=== PATIENT | female | born 1965 | race Two or more races ===

== ENCOUNTER → 2017-09-24 | Outpatient (CLI) | payer OTHER ==
[~2017-09-24] VITALS: Ht 152.4 cm; Wt 73.9 kg
== END | disposition home or self-care (01) ==
LOC: PPHC 07:33
DX: J06.9 Acute upper respiratory infection, unspecified (principal)

== ENCOUNTER → 2017-09-25 | Outpatient (CLI) | payer OTHER ==
[~2017-09-25] VITALS: Ht 152.4 cm; Wt 73.9 kg
== END | disposition home or self-care (01) ==
LOC: PPHC 15:27
DX: J09.X2 Influenza due to identified novel influenza A virus with other respiratory manifestations (principal); J11.1 Influenza due to unidentified influenza virus with other respiratory manifestations

== ENCOUNTER 2025-08-10 07:57 | Inpatient (IN) | payer BC ==
[~2025-08-10] VITALS: Ht 170.2 cm; Wt 77.1 kg
[2025-08-10] MEDS ORDERED: BENZONATATE 200 MG CAPSULE PO ONE (09:15)
[2025-08-10] MEDS ORDERED: GUAIFENESIN 200 MG/10 ML BLIST.PACK PO ONE ×2 (09:15→10:05)
[2025-08-10] MEDS ORDERED: 0.9 % SODIUM CHLORIDE 1,000 ML IV ONE (09:15)
[2025-08-10] MEDS ORDERED: 0.9 % SODIUM CHLORIDE 500 ML IV ONE (09:15)
[2025-08-10] MEDS ORDERED: ALBUTEROL SULFATE 3 ML/2.5 MG AMPUL.NEB IH SCH (09:15)
[2025-08-10 10:35] LABS: BASO % 0.9 % (0.1-1.2); EOS # 0.00 (0.04-0.54); EOS % 0.0 % (0.7-7.0); LYMPH # 0.73 (1.18-3.74); LYMPH % 3.9 % (19.3-53.1); MEAN PLATELET VOLUME 10.40 fl (9.4-12.4); MONO # 1.50 (0.24-0.82); MONO % 8.1 % (4.7-12.5); NEUT # 15.87 (1.56-6.13); NEUT % 85.5 % (34.0-71.1); RED CELL DISTRIBUTION WIDTH 11.6 % (11.6-14.4)
[2025-08-10 11:02] LABS: BUN CREA RATIO 18.0 (7.0-25.0); CREATININE SERUM 1.25 mg/dL (0.55-1.02); GFR 43.72; GLUCOSE FASTING 128.0 mg/dL (65-100); OSMOLALITY SERUM 262.0 MOSM/KG (275-295)
[2025-08-10] MEDS ORDERED: ALBUTEROL SULFATE 3 ML/2.5 MG AMPUL.NEB IH ONE (11:26)
[2025-08-10 11:44] LABS: COVID-19 AG NEGATIVE (NEGATIVE)
[2025-08-10] MEDS ORDERED: AZITHROMYCIN 500 MG VIAL IV ONE ×2 (12:15→13:47)
[2025-08-10] MEDS ORDERED: POTASSIUM CHLORIDE IN 0.9%NACL 40 MEQ/1,000 ML PIGGYBAG IV ONE (12:15)
[2025-08-10] MEDS ORDERED: CEFTRIAXONE SODIUM 2,000 MG VIAL IV ONE (12:15)
[2025-08-10] MEDS ORDERED: CEFTRIAXONE SODIUM 2,000 MG VIAL ONE (13:46)
[2025-08-10] MEDS ORDERED: BENZONATATE 100 MG CAPSULE PO SCH (17:09)
[2025-08-10] MEDS ORDERED: IPRATROPIUM BROMIDE 0.5 MG/2.5 ML AMPUL.NEB IH SCH (18:00)
[2025-08-10 18:23] VITALS: BP 140/90
[2025-08-10 22:46] VITALS: BP 110/70; O2SAT 96
[2025-08-11 02:56] VITALS: BP 97/62; O2SAT 97
[2025-08-11] MEDS ORDERED: 0.9 % SODIUM CHLORIDE 1,000 ML IV SCH (07:15)
[2025-08-11] MEDS ORDERED: AZITHROMYCIN 500 MG VIAL IV ONE (08:00)
[2025-08-11 08:31] LABS: BASO % 0.5 % (0.1-1.2); EOS # 0.01 (0.04-0.54); EOS % 0.1 % (0.7-7.0); LYMPH # 0.79 (1.18-3.74); LYMPH % 6.6 % (19.3-53.1); MEAN PLATELET VOLUME 10.40 fl (9.4-12.4); MONO # 1.05 (0.24-0.82); MONO % 8.8 % (4.7-12.5); NEUT # 9.86 (1.56-6.13); NEUT % 82.3 % (34.0-71.1); RED CELL DISTRIBUTION WIDTH 11.6 % (11.6-14.4)
[2025-08-11 08:58] LABS: INR 1.03
[2025-08-11] MEDS ORDERED: BENZONATATE 200 MG CAPSULE PO SCH (09:00)
[2025-08-11] MEDS ORDERED: AZITHROMYCIN 500 MG VIAL IV SCH (09:00)
[2025-08-11] MEDS ORDERED: CEFTRIAXONE SODIUM 2,000 MG in 0.9 % SODIUM CHLORIDE 100 ML IV SCH (09:00)
[2025-08-11] MEDS ORDERED: ENOXAPARIN SODIUM 40 MG/0.4 ML SYRINGE SUBCUTANEO SCH (09:00)
[2025-08-11 09:32] LABS: BUN CREA RATIO 22.0 (7.0-25.0); CREATININE SERUM 0.72 mg/dL (0.55-1.02); GFR 82.62; GLUCOSE FASTING 99.0 mg/dL (65-100); OSMOLALITY SERUM 277.0 MOSM/KG (275-295)
[2025-08-11 09:43] VITALS: BP 106/69; O2SAT 93
[2025-08-11 18:03] VITALS: BP 101/70
[2025-08-12 02:26] VITALS: BP 113/71; O2SAT 97
[2025-08-12] MEDS ORDERED: AZITHROMYCIN 500 MG VIAL IV ONE (07:49)
[2025-08-12 09:31] VITALS: BP 138/82; O2SAT 95
== END 2025-08-12 15:19 | disposition home or self-care (01) | DRG 195 ==
LOC: ER 07:58 → MEDJ 17:30 → SEC-K 17:30 → MEDJ 17:53
PROVIDERS: Emergency Medicine; ADMIT Student in an Organized Health Care Education/Training Program; ATTEND Student in an Organized Health Care Education/Training Program
PROC: 4A033R1 Measurement of Arterial Saturation, Peripheral, Percutaneous Approach (ICD-10-PCS; principal; 2025-08-10)
PROC: 3E0F7GC Introduction of Other Therapeutic Substance into Respiratory Tract, Via Natural or Artificial Opening (ICD-10-PCS; 2025-08-10)
DX: J18.9 Pneumonia, unspecified organism (principal); J11.1 Influenza due to unidentified influenza virus with other respiratory manifestations; J20.9 Acute bronchitis, unspecified; K13.70 Unspecified lesions of oral mucosa; E87.6 Hypokalemia